=== PATIENT | female | born 1975 | race Caucasian/White ===

== ENCOUNTER 2019-03-24 14:46 | Emergency (ER) | payer MEDICAID ==
[~2019-03-24] VITALS: Ht 154.9 cm; Wt 140.0 kg
[2019-03-24 14:51] VITALS: BP 158/65
[2019-03-24] MEDS ORDERED: ketorolac tromethamine 15mg/ml inj. IM ONE (16:05)
[2019-03-24] MEDS ORDERED: orphenadrine citrate 60mg/2ml inj. IM ONE (16:05)
[2019-03-24] MEDS ORDERED: METH-360 PO (16:19)
[2019-03-24] MEDS ORDERED: IBUP-1985 PO (16:19)
== END 2019-03-24 16:45 | disposition home or self-care (01) ==
LOC: ER 14:46
DX: S39.012A Strain of muscle, fascia and tendon of lower back, initial encounter (principal); S29.012A Strain of muscle and tendon of back wall of thorax, initial encounter; X50.9XXA Other and unspecified overexertion or strenuous movements or postures, initial encounter; Y93.89 Activity, other specified; Y92.89 Other specified places as the place of occurrence of the external cause; Y99.8 Other external cause status
CPT/HCPCS: 96372; 99284; J1885; J2360

== ENCOUNTER 2023-03-02 05:33 | Inpatient (IN) | payer MEDICAID ==
[2023-02-23 14:28] LABS: PRE OP PLATELET COUNT 229 X10'3 (140-440)
[2023-02-23 14:29] LABS: MEAN CORPUSCULAR HEMOGLOBIN 29.7 PG (27.0-31.0); MEAN CORPUSCULAR HGB CONC 33.3 g/dL (33.0-36.5); MEAN CORPUSCULAR VOLUME 89.2 FL (78-98); MEAN PLATELET VOLUME 7.1 FL (7.4-10.4); PRE OP HEMATOCRIT 44.8 % (35.0-45.0); PRE OP HEMOGLOBIN 14.9 g/dL (12.0-16.0); PRE OP WHITE BLOOD COUNT 9.7 10'3 (4.8-10.8); RED BLOOD COUNT 5.02 X10'6 (4.20-5.60)
[2023-02-23 14:45] LABS: ALBUMIN 4.2 G/DL (3.4-5.0); ALBUMIN/GLOBULIN RATIO 1.1 (1.1-1.5); ALKALINE PHOSPHATASE 89 IU/L (46-116); BLOOD UREA NITROGEN 9 MG/DL (7-18); BUN/CREATININE RATIO 13.4 (10.0-20.0); CALCIUM 9.7 MG/DL (8.5-10.1); CHLORIDE 102 MMOL/L (99-107); CREATININE 0.67 MG/DL (0.40-0.90); PRE OP ANION GAP 9 (8-16); PRE OP AST 71 U/L (10-37); PRE OP BILIRUB, TOTAL 0.6 MG/DL (0.0-1.0); PRE OP GLUCOSE 97 MG/DL (70-104); PRE OP POTASSIUM 4.1 MMOL/L (3.4-5.1); PRE OP SODIUM 138 MMOL/L (135-145); TOTAL CARBON DIOXIDE 27.4 MMOL/L (24-32); TOTAL PROTEIN 8.1 G/DL (6.4-8.2); eGFR > 90 ML/MIN
[2023-02-23 14:54] LABS: PRE OP ALT 113 U/L (30-65)
[2023-02-23 15:09] LABS: PLATELET ESTIMATE NORMAL; TOTAL CELLS COUNTED 100
[2023-03-02] VITALS (22 sets, daily range): BP systolic 95–157; BP diastolic 60–97; PULSE 52–77; RESP 14–21; TEMP 96.9–97.4; O2SAT 93–100
[~2023-03-02] VITALS: Ht 152.4 cm; Wt 114.0 kg
[~2023-03-02 05:33] MED LIST: ACET-1008 PO; CLON-527 PO; CLON0.1T PO; HYDR50TA65 PO; IBUP-1986 PO; METH-798 PO; OMEP20CA16 PO; cefazolin 2gm/D5W 100mL 100 ML IV ONE; famotidine 20mg tablet PO ONE; ringers solution, lacted 1,000 ML IV SCH; tranexamic acid 650mg tablet PO ONE; vancomycin 1,500 MG in NS 300ml IV soln IV ONE
--- NOTE | 2023-03-02 06:30 | NUR ---
CSM: PULSES PRESENT AND MARKED. PATIENT NOT WATCH THE VIDEO. USED CREAM
[2023-03-02] MEDS ORDERED: BUPIVACAINE/MELOXICAM 14 ML VIAL IL ONE (06:41)
[2023-03-02] MEDS ORDERED: BUPIVAcaine/PF 5 mg/ml 10ml ONE (06:47)
[2023-03-02] MEDS ORDERED: ROPIVAcaine 0.5% (5mg/ml) 30ml vial ONE ×2 (06:47→09:09)
[2023-03-02] MEDS ORDERED: ketorolac trometh. 30mg/ml inj. ONE (06:50)
[2023-03-02] MEDS ORDERED: BUPIVAcaine 0.5% inj/PF 0 ML ONE (06:50)
[2023-03-02] MEDS ORDERED: LIDOcaine 1% w/EPI 1:100,000 inj. MDV 50 ML VIAL ONE (06:50)
[2023-03-02] MEDS ORDERED: LIDOcaine 1% (10mg/ml)w/preservative inj. 20ml MDV ONE (06:50)
[2023-03-02] MEDS ORDERED: dexmedetomidine 200mcg/2ml inj. IV ONE (07:09)
[2023-03-02] MEDS ORDERED: tetracaine 1% (10mg/ml) pres. free inj. ONE (07:09)
[2023-03-02] MEDS ORDERED: fentaNYL/PF 50MCG/1 ML 2ML syringe ONE (07:15)
[2023-03-02] MEDS ORDERED: MIDAZolam 1mg/ml 10ml vial ONE (07:15)
[2023-03-02] MEDS ORDERED: morphine 2 MG/ML inj. syringe IV PRN (07:25)
[2023-03-02] MEDS ORDERED: hydrALAZINE 20mg/ml inj. IV PRN (07:25)
[2023-03-02] MEDS ORDERED: ondansetron/PF 4mg/2ml inj IV PRN (07:25)
[2023-03-02] MEDS ORDERED: morphine 4 MG/ML inj SYRINge IV PRN (07:25)
[2023-03-02] MEDS ORDERED: fentaNYL/PF 50MCG/1 ML 2ML syringe IV PRN ×2 (07:25)
[2023-03-02] MEDS ORDERED: ringers solution, lacted 1,000 ML IV SCH (07:25)
[2023-03-02] MEDS ORDERED: labetalol 20mg/4ml (5mg/ml) syringe IV PRN (07:25)
[2023-03-02] MEDS ORDERED: dexamethasone sod phosphate 4mg/ml inj. ONE (09:10)
[2023-03-02] MEDS ORDERED: MIDAZolam 1 MG/ML 5ML VIAL ONE ×2 (09:12→09:15)
--- NOTE | 2023-03-02 09:58 | NUR ---
Received from OR via [facility] BED TO RR 7, accompanied by Anesthesiologist DR VELEZ and report given by Anesthesiolgist. PT PRESENTS WITH PIV 20G RIGHT HAND, RIGHT KNEE STERI STRIPS WITH ISLAND DRESSING SILVER WRAP WITH POWDER PACK AND KNEE IMMOBILIZER, PARSONS CATHETER WITH 50MLS OUPUT FROM OR, SPO2 100% MASK 6L, LR RUNNING AT 100MLS/HR, VSS. Addendum: 03/02/23 at 1016 by Emmy Rudd RN, RN Amended: Links added.
[2023-03-02] MEDS ORDERED: naloxone 0.4 mg/ml inj IV PRN (10:15)
[2023-03-02] MEDS ORDERED: bisacodyl 10mg suppository rectal RC PRN (10:15)
[2023-03-02] MEDS ORDERED: non-formulary drug (Ibuprofen 1 TAB) PO PRN (10:15)
[2023-03-02] MEDS ORDERED: magnesium hydroxide 30ml (MOM) UD suspension PO PRN (10:15)
[2023-03-02] MEDS ORDERED: acetaminophen 325mg tablet PO PRN ×2 (10:15)
[2023-03-02] MEDS ORDERED: diphenhydrAMINE 25mg capsule PO PRN ×2 (10:15)
[2023-03-02] MEDS ORDERED: HYDROmorphone inj. 0.5 MG/0.5 ML DISP.SYRIN IV PRN (10:15)
--- NOTE | 2023-03-02 11:38 | NUR ---
Report called to receiving nurse SUZANNE WHEATLEY. Transferred via HOSPITAL BED TO ROOM 4016. BED IN LOW LOCKED POSITION WITH CALL LIGHT IN REACH. TECHNICAL SUPPORT ASSISTANT PLACE PT ON BEDSIDE VITAL MACHINE. CHART TAKEN TO NURSES STATION. PT'S DAUGHTER HAS PT Belongings. Special Issues communicated to receiving nurse. Addendum: 03/02/23 at 1146 by Emmy Rudd RN, RN Amended: Links added.
[2023-03-02] MEDS: METHOCARBAMOL 750 MG PO SCH ×2 (12:08→21:00)
[2023-03-02] MEDS: acetaminophen 325mg tablet PO SCH ×2 (14:23→21:40)
[2023-03-02] MEDS: potassium cl 20mEq in 1/2 NS 1,000 ML IV SCH (14:23)
[2023-03-02] MEDS: ceFAZolin/D5W- 1GM premix 50 ML IV SCH (15:54)
[2023-03-02] MEDS: oxyCODONE IR 5mg (immed. release) tablet PO PRN ×2 (17:20→21:40)
[2023-03-02] MEDS ORDERED: vancomycin/NS 1 GM ADD-VANTAGE 250 ML IV SCH (20:00)
[2023-03-02] MEDS: sennosides 8.6mg tablet PO SCH (21:40)
[2023-03-02] MEDS: hydrOXYzine 25 MG tablet PO SCH (21:41)
[2023-03-02] MEDS: clonazePAM 1mg tablet PO SCH (21:41)
[2023-03-02] MEDS: cloNIDine 0.1 mg tablet PO SCH (21:41)
[2023-03-02] MEDS: ondansetron/PF 4mg/2ml inj IV PRN (21:50)
[2023-03-02] MEDS ORDERED: QUET300T20 PO (22:15)
[2023-03-02] MEDS: quetiapine 100mg tablet PO SCH (22:35)
[2023-03-03] VITALS (8 sets, daily range): BP systolic 125–179; BP diastolic 63–79; PULSE 70–82; RESP 16–20; TEMP 97–98.3; O2SAT 94–96
[2023-03-03] MEDS: ceFAZolin/D5W- 1GM premix 50 ML IV SCH (00:50)
[2023-03-03] MEDS: potassium cl 20mEq in 1/2 NS 1,000 ML IV SCH ×2 (00:50→02:15)
[2023-03-03] MEDS: HYDROmorphone 1 mg/ml syringe IV PRN ×2 (00:59→22:24)
[2023-03-03] MEDS: acetaminophen 325mg tablet PO SCH ×4 (02:00→19:32)
--- NOTE | 2023-03-03 06:00 | NUR ---
report recieved from Samantha WHEATLEY, care assumed with Vitor WHEATLEY preceptor. Janay WHEATLEY Addendum: 03/03/23 at 0950 by Janay Grant RN Amended: Links added.
--- NOTE | 2023-03-03 06:37 | NUR ---
Problems reprioritized. Patient report given, questions answered & plan of care reviewed with JESUS WHEATLEY AND
[2023-03-03 06:59] LABS: BASOPHILS % (AUTO) 0 % (0-1); EOSINOPHILS % (AUTO) 0.1 % (0-6); HEMATOCRIT 34.8 % (35.0-45.0); HEMOGLOBIN 11.7 g/dl (12.0-16.0); LYMPHOCYTES # (AUTO) 2.9 X10'3 (1.1-4.8); LYMPHOCYTES % (AUTO) 23.5 % (21-51); MEAN CORPUSCULAR HEMOGLOBIN 29.9 PG (27.0-31.0); MEAN CORPUSCULAR HGB CONC 33.5 g/dL (33.0-36.5); MEAN CORPUSCULAR VOLUME 89.1 FL (78-98); MEAN PLATELET VOLUME 7.1 FL (7.4-10.4); MONOCYTES # (AUTO) 0.7 X10'3 (0-0.9); NEUTROPHILS # (AUTO) 8.8 X10'3 (1.8-7.7); NEUTROPHILS % (AUTO) 70.4 % (42-75); PLATELET COUNT 221 X10'3 (140-440); RED BLOOD COUNT 3.91 X10'6 (4.20-5.60); RED CELL DISTRIBUTION WIDTH 13.2 % (11.5-14.5); WHITE BLOOD COUNT 12.5 X10'3 (4.5-11.0)
[2023-03-03 07:25] LABS: ANION GAP 7 (8-16); CHLORIDE 102 MMOL/L (99-107); POTASSIUM 4.1 MMOL/L (3.5-5.1); SODIUM 136 MMOL/L (135-145)
[2023-03-03] MEDS: pantoprazole 40mg Tablet.DR PO SCH (07:56)
[2023-03-03] MEDS: aspirin 325mg tablet PO SCH (07:56)
[2023-03-03] MEDS: METHOCARBAMOL 750 MG PO SCH ×3 (08:00→21:00)
--- NOTE | 2023-03-03 08:00 | NUR ---
Pt's medication methocarbamol 750 mg not available in her drawer or Evedi cell, pc to pharm, they don't have her medications in pharmacy at this time and do not carry that medication-spoke with pt regarding meds and her dtr has taken meds home-will f/y when MD rounds, pt states "I'm doing ok right now". Janay WHEATLEY
--- NOTE | 2023-03-03 09:19 | NUR ---
Per EMR pt POD #1 s/p right TKA. Written high protein education with ONS coupons and RD contact information mailed to patient's address found in EMR d/t short staffing. Will continue to follow and provide verbal education as able. Addendum: 03/03/23 at [address] Amended: Links added.
--- NOTE | 2023-03-03 10:30 | NUR ---
Pt seen with Dr Garcia during rounding, he explained her surgery in detail and need to wear Hard brace when in bed and when out of bed-discussed that brace is high into her groin, will address for comfort. Janay WHEATLEY Addendum: 03/03/23 at 1107 by Janay Grant RN Amended: Links added.
[2023-03-03] MEDS: ondansetron/PF 4mg/2ml inj IV PRN (10:43)
[2023-03-03] MEDS: oxyCODONE IR 5mg (immed. release) tablet PO PRN ×2 (13:30→19:33)
--- NOTE | 2023-03-03 17:13 | NUR ---
Preceptee documentation: I have reviewed and agree with all interventions, assessments performed and documented by Brooke De La Fuente RN. Preceptee Medication Administration: For this medication-pass time frame, all medication were reviewed, dispensed, administered and documented per hospital policy by Brooke De La Fuente RN.
--- NOTE | 2023-03-03 18:12 | NUR ---
Patient in room ORTHO 4016. I have received report from JESUS RN and had the opportunity to ask questions and assume patient care.
[2023-03-03] MEDS: sennosides 8.6mg tablet PO SCH (22:20)
[2023-03-03] MEDS: clonazePAM 1mg tablet PO SCH (22:20)
[2023-03-03] MEDS: cloNIDine 0.1 mg tablet PO SCH (22:20)
[2023-03-03] MEDS: hydrOXYzine 25 MG tablet PO SCH (22:21)
[2023-03-03] MEDS: quetiapine 100mg tablet PO SCH (22:23)
[2023-03-04] MEDS: acetaminophen 325mg tablet PO SCH ×2 (02:00→08:01)
[2023-03-04] MEDS: oxyCODONE IR 5mg (immed. release) tablet PO PRN ×4 (04:45→23:15)
[2023-03-04 06:00] VITALS: BP 139/78; PULSE 75; RESP 16; TEMP 98.2; O2SAT 96
[2023-03-04 06:02] LABS: BASOPHILS % (AUTO) 0.2 % (0-1); EOSINOPHILS # (AUTO) 0.1 X10'3 (0-0.9); EOSINOPHILS % (AUTO) 0.8 % (0-6); HEMATOCRIT 32.5 % (35.0-45.0); LYMPHOCYTES # (AUTO) 3.7 X10'3 (1.1-4.8); LYMPHOCYTES % (AUTO) 41.3 % (21-51); MEAN CORPUSCULAR HEMOGLOBIN 30.3 PG (27.0-31.0); MEAN CORPUSCULAR HGB CONC 33.8 g/dL (33.0-36.5); MEAN CORPUSCULAR VOLUME 89.5 FL (78-98); MEAN PLATELET VOLUME 7.1 FL (7.4-10.4); MONOCYTES # (AUTO) 0.6 X10'3 (0-0.9); MONOCYTES % (AUTO) 7.1 % (2-12); NEUTROPHILS # (AUTO) 4.6 X10'3 (1.8-7.7); NEUTROPHILS % (AUTO) 50.6 % (42-75); PLATELET COUNT 189 X10'3 (140-440); RED BLOOD COUNT 3.63 X10'6 (4.20-5.60); RED CELL DISTRIBUTION WIDTH 13.5 % (11.5-14.5); WHITE BLOOD COUNT 9.1 X10'3 (4.5-11.0)
--- NOTE | 2023-03-04 06:23 | NUR ---
Problems reprioritized. Patient report given, questions answered & plan of care reviewed with FRANCK WHEATLEY.
[2023-03-04] MEDS: METHOCARBAMOL 750 MG PO SCH ×2 (08:00→21:00)
[2023-03-04] MEDS: pantoprazole 40mg Tablet.DR PO SCH (08:05)
[2023-03-04] MEDS: aspirin 325mg tablet PO SCH (08:05)
[2023-03-04 09:00] VITALS: RESP 16; O2SAT 96
[2023-03-04 10:00] VITALS: BP 144/66; PULSE 81; RESP 16; TEMP 98.2; O2SAT 97
[2023-03-04] MEDS ORDERED: acetaminophen 325mg tablet PO PRN (10:15)
[2023-03-04 18:30] VITALS: BP 151/91; PULSE 81; RESP 20; TEMP 98; O2SAT 100
[2023-03-04 19:00] VITALS: RESP 14; O2SAT 99
[2023-03-04] MEDS: sennosides 8.6mg tablet PO SCH (21:00)
[2023-03-04] MEDS: cloNIDine 0.1 mg tablet PO SCH (21:06)
[2023-03-04] MEDS: hydrOXYzine 25 MG tablet PO SCH (21:07)
[2023-03-04] MEDS: quetiapine 100mg tablet PO SCH (21:07)
[2023-03-04] MEDS: clonazePAM 1mg tablet PO SCH (21:07)
[2023-03-05] MEDS: oxyCODONE IR 5mg (immed. release) tablet PO PRN ×2 (04:43→19:26)
[2023-03-05 06:00] VITALS: BP 114/53; PULSE 83; RESP 18; TEMP 98.9; O2SAT 92
[2023-03-05 06:11] LABS: BASOPHILS % (AUTO) 0.3 % (0-1); EOSINOPHILS # (AUTO) 0.1 X10'3 (0-0.9); EOSINOPHILS % (AUTO) 1.1 % (0-6); HEMOGLOBIN 10.5 g/dl (12.0-16.0); LYMPHOCYTES % (AUTO) 46.6 % (21-51); MEAN CORPUSCULAR HEMOGLOBIN 30.3 PG (27.0-31.0); MEAN CORPUSCULAR VOLUME 89.1 FL (78-98); MEAN PLATELET VOLUME 7.2 FL (7.4-10.4); MONOCYTES # (AUTO) 0.5 X10'3 (0-0.9); MONOCYTES % (AUTO) 6.3 % (2-12); NEUTROPHILS % (AUTO) 45.7 % (42-75); PLATELET COUNT 190 X10'3 (140-440); RED BLOOD COUNT 3.48 X10'6 (4.20-5.60); RED CELL DISTRIBUTION WIDTH 13.2 % (11.5-14.5); WHITE BLOOD COUNT 8.7 X10'3 (4.5-11.0)
--- NOTE | 2023-03-05 06:47 | NUR ---
Problems reprioritized. Patient report given, questions answered & plan of care reviewed with JANELLE. Addendum: 03/05/23 at 0648 by Erickson Esparza RN Amended: Links added.
--- NOTE | 2023-03-05 06:52 | NUR ---
Patient in room ORTHO 4016. I have received report from CORRY Adler and had the opportunity to ask questions and assume patient care.
[2023-03-05] MEDS: METHOCARBAMOL 750 MG PO SCH ×3 (08:00→20:33)
[2023-03-05 10:00] VITALS: BP 123/85; PULSE 84; RESP 16; TEMP 98.3; O2SAT 95
[2023-03-05] MEDS: aspirin 325mg tablet PO SCH (10:18)
[2023-03-05] MEDS: pantoprazole 40mg Tablet.DR PO SCH (10:18)
--- NOTE | 2023-03-05 18:00 | NUR ---
Problems reprioritized. Patient report given, questions answered & plan of care reviewed with Vitor Coleman RN.
[2023-03-05 18:30] VITALS: BP 128/94; PULSE 70; RESP 15; TEMP 98.1; O2SAT 96
[2023-03-05] MEDS: ondansetron/PF 4mg/2ml inj IV PRN (19:25)
[2023-03-05] MEDS: quetiapine 100mg tablet PO SCH (20:32)
[2023-03-05] MEDS: clonazePAM 1mg tablet PO SCH (20:32)
[2023-03-05] MEDS: cloNIDine 0.1 mg tablet PO SCH (20:32)
[2023-03-05] MEDS: hydrOXYzine 25 MG tablet PO SCH (20:32)
[2023-03-05] MEDS: sennosides 8.6mg tablet PO SCH (20:35)
[2023-03-05 22:00] VITALS: BP 125/102; PULSE 88; RESP 15; TEMP 98.9; O2SAT 98
[2023-03-06] MEDS: oxyCODONE IR 5mg (immed. release) tablet PO PRN ×2 (04:33→10:28)
[2023-03-06 06:00] VITALS: BP 112/39; PULSE 70; RESP 15; TEMP 98.9; O2SAT 98
--- NOTE | 2023-03-06 06:20 | NUR ---
Problems reprioritized. Patient report given, questions answered & plan of care reviewed with JANELLE. Addendum: 03/06/23 at 0621 by Erickson Esparza RN Amended: Links added.
[2023-03-06] MEDS: METHOCARBAMOL 750 MG PO SCH ×2 (08:00→12:53)
[2023-03-06 10:00] VITALS: BP 157/76; PULSE 81; RESP 18; TEMP 97.8; O2SAT 93
[2023-03-06] MEDS: aspirin 325mg tablet PO SCH (10:27)
[2023-03-06] MEDS: pantoprazole 40mg Tablet.DR PO SCH (10:27)
--- NOTE | 2023-03-06 11:27 | NUR ---
Initial: Pt admit for right knee DJD, currently POD # 4 s/p right TKA. Pt on a regular diet with improving PO intake, averaging 48% PO intake since admit though average 75% PO intake of four most recent meals. Average intake since admit meets 95% estimated energy needs and 100% estimated protein needs. LBM 03/05 per EMR. No nutrition intervention warranted at this time. Will continue to follow and make recommendations as appropriate. Recommendations: 1) Continue regular diet 2) Routine bowel care 3) Weekly scaled weights Addendum: 03/06/23 at [address] Amended: Links added.
[2023-03-06 11:30] VITALS: RESP 14
--- NOTE | 2023-03-06 12:45 | NUR ---
REGINA Bryan, on unit writing DC packet, including discharge teaching, stating no further education is needed.
[2023-03-06] MEDS ORDERED: nystatin 15 GM powder TP SCH (13:00)
== END 2023-03-06 14:15 | disposition home or self-care (01) | DRG 326 ==
LOC: PAS IN 05:33 → ORTHO 4S 11:40
PROVIDERS: ADMIT Orthopaedic Surgery; ATTEND Orthopaedic Surgery
PROC: 8E0Y0CZ Robotic Assisted Procedure of Lower Extremity, Open Approach (ICD-10-PCS; 2023-03-02)
PROC: 8E0YXBZ Computer Assisted Procedure of Lower Extremity (ICD-10-PCS; 2023-03-02)
PROC: 3E0T3BZ Introduction of Anesthetic Agent into Peripheral Nerves and Plexi, Percutaneous Approach (ICD-10-PCS; 2023-03-02)
PROC: 3E0T33Z Introduction of Anti-inflammatory into Peripheral Nerves and Plexi, Percutaneous Approach (ICD-10-PCS; 2023-03-02)
PROC: 0SRC0J9 Replacement of Right Knee Joint with Synthetic Substitute, Cemented, Open Approach (ICD-10-PCS; principal; 2023-03-02 07:25)
DX: M17.11 Unilateral primary osteoarthritis, right knee (principal); K76.0 Fatty (change of) liver, not elsewhere classified; E66.01 Morbid (severe) obesity due to excess calories; F41.9 Anxiety disorder, unspecified; F32.A Depression, unspecified; F43.10 Post-traumatic stress disorder, unspecified; K21.9 Gastro-esophageal reflux disease without esophagitis; Z68.42 Body mass index [BMI] 45.0-49.9, adult
CPT/HCPCS: 36415; 80051; 80053; 82948; 85007; 85025; 87081; 97110; 97116; 97161; 97530; A4215; A4615; A4618; A6258; A6449; A7000; C1713; C1776; G0378; J0690; J1100; J1170; J1885; J2250; J2405; J2795; J3010; J3370; J3480; J3490; J7120; Q0177; S0020